=== PATIENT | female | born 1990 | race Caucasian/White ===

== ENCOUNTER → 2023-08-16 | Emergency (ER) | payer BC ==
[~2023-08-16] VITALS: Ht 177.8 cm; Wt 81.6 kg
[~2023-08-16] MED LIST: HYDR-4303 PO; MORPHINE SULFATE INJ 4 MG/ML DISP.SYRIN ONE; ONDANSETRON 4 MG TAB.RAPDIS ONE
[2023-08-16] MEDS: MORPHINE SULFATE INJ 2 MG/ML DISP.SYRIN SQ ONE (17:30)
[2023-08-16] MEDS: ONDANSETRON 4 MG TAB.RAPDIS SL ONE (17:33)
[2023-08-16 17:39] VITALS: BP 122/70; TEMP 98.3; O2SAT 98
== END | disposition home or self-care (01) ==
LOC: ER 17:06
DX: K08.89 Other specified disorders of teeth and supporting structures (principal); K13.79 Other lesions of oral mucosa
CPT/HCPCS: 99283; 96372; J2270; Q0162